=== PATIENT | male | born 1960 | race Caucasian/White ===

== ENCOUNTER 2023-08-07 20:30 | Observation (INO) | payer OTHER ==
[~2023-08-07] VITALS: Ht 175.3 cm; Wt 84.6 kg
[2023-08-07] MEDS ORDERED: LISI20TA37 PO (20:38)
[2023-08-07] MEDS ORDERED: UROCTAB3 PO (20:38)
[2023-08-08 01:07] LABS: BASO % 0.3 % (0.0-1.0); EOS % 0.3 % (0.0-3.0); HEMATOCRIT 48.8 % (42.0-52.0); LYMPH # 0.9 10^3/uL (1.5-5.0); LYMPH % 10.7 % (24.0-44.0); MEAN CORPUSCULAR HEMOGLOBIN 31.5 pg (27.0-33.0); MEAN CORPUSCULAR HGB CONC 34.8 g/dl (32.0-36.5); MEAN CORPUSCULAR VOLUME 90.4 fl (80.0-96.0); MONO # 0.8 10^3/uL (0.0-0.8); MONO % 9.8 % (2.0-8.0); NEUTROPHILS # 6.2 10^3/uL (1.5-8.5); NEUTROPHILS % 78.4 % (36.0-66.0); PLATELET COUNT, AUTOMATED 176 10^3/uL (150-450); WHITE BLOOD COUNT 7.9 10^3/uL (4.0-10.0)
[2023-08-08 01:54] LABS: INR 1.09; PROTHROMBIN TIME 13.8 SECONDS (12.5-14.5)
[2023-08-08 01:55] LABS: PARTIAL THROMBOPLASTIN TIME 28.4 SECONDS (24.8-34.2)
[2023-08-08 01:57] LABS: ETHYL ALCOHOL (ETHANOL) 0.004 % (0.000-0.010)
[2023-08-08 01:58] LABS: BLOOD UREA NITROGEN 25 MG/DL (9-23); CALCIUM LEVEL 8.4 MG/DL (8.3-10.6); CARBON DIOXIDE LEVEL 24 MMOL/L (20-31); CHLORIDE LEVEL 103 MMOL/L (98-107); CK-MB VALUE MASS < 1.0 NG/ML (<3.6); CREATININE FOR GFR 1.12 MG/DL (0.70-1.30); GLOMERULAR FILTRATION RATE > 60.0 (>49); GLUCOSE, FASTING 105 MG/DL (74-106); SODIUM LEVEL 136 MMOL/L (136-145)
[2023-08-08 02:00] LABS: FREE T4 1.22 NG/DL (0.89-1.76); THYROID STIMULATING HORMONE 0.925 uIU/ML (0.55-4.78)
[2023-08-08 02:02] LABS: CPK CREATINE PHOSPHOKINASE 232 U/L (46-171); MB/CK RELATIVE INDEX 0.43 (< OR =4)
[2023-08-08] MEDS ORDERED: OSELTAMIVIR PHOSPHATE 75 MG CAP (TAMIFLU) PO ONE (02:30)
[2023-08-08 02:48] LABS: CK-MB VALUE MASS < 1.0 NG/ML (<3.6)
[2023-08-08 03:13] LABS: CPK CREATINE PHOSPHOKINASE 241 U/L (46-171); MB/CK RELATIVE INDEX 0.41 (< OR =4)
[2023-08-08] MEDS ORDERED: ACETAMINOPHEN TAB 650MG DOSE (2X325MG) PO PRN (03:20)
[2023-08-08 04:49] VITALS: BP 134/81; TEMP 99.8; O2SAT 95
[2023-08-08 05:04] LABS: AMPHETAMINES LEVEL URINE NEGATIVE (NEGATIVE); BARBITURATES URINE NEGATIVE (NEGATIVE); BENZODIAZEPINES URINE NEGATIVE (NEGATIVE); CANNABINOIDS URINE NEGATIVE (NEGATIVE); COCAINE METABOLITE URINE NEGATIVE (NEGATIVE); METHADONE URINE NEGATIVE (NEGATIVE); OPIATES URINE NEGATIVE (NEGATIVE); PHENCYCLIDINE URINE NEGATIVE (NEGATIVE)
[2023-08-08 07:51] VITALS: BP 121/71; TEMP 100; O2SAT 94
[2023-08-08] MEDS ORDERED: MED REC IN PROGRESS XX SCH (08:30)
[2023-08-08] MEDS ORDERED: POTA10808 PO (08:35)
[2023-08-08] MEDS ORDERED: HOME MED LIST COMPLETE! XX SCH (08:40)
[2023-08-08] MEDS ORDERED: OSEL75CA2 PO (09:43)
[2023-08-08 11:47] VITALS: BP 128/79; TEMP 100.6; O2SAT 95
[2023-08-08] MEDS ORDERED: OSELTAMIVIR PHOSPHATE 75 MG CAP (TAMIFLU) PO SCH (12:00)
== END 2023-08-08 16:25 | disposition home or self-care (01) ==
LOC: M ED 20:30 → M ED INP 20:31 → M PCU 08-08 04:39
PROVIDERS: ADMIT Internal Medicine; ATTEND Internal Medicine
DX: R55 Syncope and collapse (principal); J10.1 Influenza due to other identified influenza virus with other respiratory manifestations; S63.287A Dislocation of proximal interphalangeal joint of left little finger, initial encounter; W19.XXXA Unspecified fall, initial encounter; Y92.89 Other specified places as the place of occurrence of the external cause; Y93.89 Activity, other specified; I10 Essential (primary) hypertension; Z87.442 Personal history of urinary calculi; Z88.8 Allergy status to other drugs, medicaments and biological substances; Z79.899 Other long term (current) drug therapy